=== PATIENT | male | born 1950 | race Caucasian/White ===

== ENCOUNTER → 2016-09-11 | Outpatient (CLI) | payer BC ==
[~2016-09-11] MED LIST: ASPI-535 PO; ATOR20TA17 PO; GLUC1CAP37 PO; MULT1TAB59 PO; OMEG1CAP97 PO; SAW1CAPS3 PO
--- NOTE | 2016-09-16 06:32 | HKNOTE ---
DATE OF SERVICE: 09/12/2016 Patient comes for preoperative evaluation. He is scheduled to have a left total knee replacement on 09/16/2016. He has been cleared for surgery by Dr. Benja Beal. He has read my booklet on knee art hritis and knee replacement surgery. Numerous questions were asked and answered. The patient has p reviously undergone a right knee replacement and is extremely pleased with results of the surgery. There were absolutely no postoperative problems or complications after that surgery. He has not giv en any blood for autotransfusion. He understands the risks associated with using hospital blood. H e is agreeable to using hospital blood, if needed. Dictated By: LV DONOVAN/CHANCE Conf#: [id number] DID#: [id number]
== END | disposition home or self-care (01) ==
LOC: HKI 13:14
DX: Z01.818 Encounter for other preprocedural examination (principal); M17.12 Unilateral primary osteoarthritis, left knee
CPT/HCPCS: G0463

== ENCOUNTER 2016-09-16 05:44 | Inpatient (IN) | payer BC ==
[2016-09-15 11:53] VITALS: BMI 29.6
[~2016-09-16] VITALS: Ht 182.9 cm; Wt 101.9 kg
[2016-09-16] VITALS (9 sets, daily range): BP systolic 95–138; BP diastolic 50–75; PULSE 61–90; RESP 18; Ht 182.9 cm; Wt 101.9 kg
[2016-09-16] MEDS ORDERED: PROPOFOL 20 ML ONE (06:15)
[2016-09-16] MEDS ORDERED: MIDAZOLAM 1 MG/ML 2 ML INJ ONE (06:15)
[2016-09-16] MEDS ORDERED: FENTAnyl 50 MCG/ML VIAL ONE (06:15)
[2016-09-16] MEDS ORDERED: GLYCOPYRROLATE 0.4 MG INJ ONE (06:15)
[2016-09-16] MEDS ORDERED: LIDOCAINE 2% (SDV) 5 ML INJ ONE (06:15)
[2016-09-16] MEDS ORDERED: ROCURONIUM 50 MG INJ ONE (06:15)
[2016-09-16] MEDS ORDERED: DEXAMETHASONE 4 MG/ML 1 ML INJ ONE (06:15)
[2016-09-16] MEDS ORDERED: NEOSTIGMINE 3 MG/3 ML SYRINGE ONE (06:15)
[2016-09-16] MEDS ORDERED: ONDANSETRON 4 MG INJ ONE (06:16)
[2016-09-16] MEDS ORDERED: SUCCINYLCHOLINE CHLORIDE 100 MG/5 ML SYG IV ONE (06:16)
[2016-09-16] MEDS ORDERED: LIDOCAINE 2%/EPI 30 ML INJ ONE (06:20)
[2016-09-16] MEDS ORDERED: hydrALAzine 20 MG INJ IV PRN (06:30)
[2016-09-16] MEDS ORDERED: LANSOPRAZOLE 30 MG CAP PO ONE (06:30)
[2016-09-16] MEDS ORDERED: CELECOXIB 200 MG CAP PO ONE (06:30)
[2016-09-16] MEDS ORDERED: FENTAnyl 50 MCG/ML VIAL IV PRN ×2 (06:30)
[2016-09-16] MEDS ORDERED: VANCOMYCIN 1 GM (PMX) 250 ML IVPB ONE (06:30)
[2016-09-16] MEDS: KNEE PAIN COCKTAIL VANCO INJ SCH ×12 (06:30→08:38)
[2016-09-16] MEDS ORDERED: morphine (1 MG/ML) 10ML SYRINGE IV PRN ×3 (06:30)
[2016-09-16] MEDS ORDERED: ONDANSETRON 4 MG INJ IV ONE (06:30)
[2016-09-16] MEDS ORDERED: LACTATED RINGER'S 1,000 ML IV* SCH (06:30)
[2016-09-16] MEDS ORDERED: DIPHENHYDRAMINE 50 MG INJ IV PRN (06:30)
[2016-09-16] MEDS ORDERED: MEPERIDINE 25 MG INJ IV PRN (06:30)
[2016-09-16] MEDS ORDERED: LABETALOL HCL 20MG INJ IV PRN (06:30)
[2016-09-16] MEDS ORDERED: EPHEDrine SULFATE 50 MG/5 ML SYG IV PRN (06:30)
[2016-09-16] MEDS ORDERED: HYDROmorphONE (0.2 MG/ML) 10ML SYG IV PRN ×3 (06:30)
[2016-09-16] MEDS ORDERED: DEXAMETHASONE 4 MG/ML 1 ML INJ IV ONE (06:30)
[2016-09-16] MEDS ORDERED: TRANEXAMIC ACID 2,000 MG in SOD CHLORIDE 0.9% 100 ML IVPB ONE (06:30)
[2016-09-16] MEDS ORDERED: ACETAMINOPHEN 1000MG/100ML IV 100 ML IVPB ONE (06:30)
[2016-09-16] MEDS ORDERED: OXYCODONE/ACETAMINOPHEN (5/325) TAB PO PRN ×2 (06:30)
[2016-09-16] MEDS ORDERED: oxyCODONE (CR) 10 MG TAB [oxyCONTIN] PO ONE (06:30)
[2016-09-16] MEDS ORDERED: MIDAZOLAM 1 MG/ML 2 ML INJ IV PRN (06:30)
[2016-09-16] MEDS ORDERED: ATROPINE 1 MG/10 ML SYRINGE IV PRN (06:30)
[2016-09-16] MEDS ORDERED: ONDANSETRON 4 MG INJ IV PRN (06:30)
[2016-09-16] MEDS ORDERED: SOD CHLORIDE 0.9% 50 ML, TRANEXAMIC ACID 2,000 MG IRR SCH ×2 (06:30)
--- NOTE | 2016-09-16 07:06 | HPN ---
Date/Time of Note Date/Time of Note DATE: 09/16/16 TIME: 07:05 Interval H&P Admission Note Pt. seen H&P reviewed: No system changes HUMBLE MILNER PA-C Sep 16, 2016 07:06
[2016-09-16] MEDS ORDERED: POLYMYXIN B 500000 UNIT INJ ONE (07:53)
[2016-09-16] MEDS ORDERED: ROPIVACAINE 0.2% 100 ML ONE (07:53)
[2016-09-16] MEDS ORDERED: METHYLENE BLUE 1% 10 ML INJ ONE (07:53)
[2016-09-16] MEDS ORDERED: TOBRAMYCIN 1.2 GM POWDER ONE ×2 (07:54→10:10)
[2016-09-16] MEDS ORDERED: VANCOMYCIN 1 GM INJ ONE (07:54)
[2016-09-16] MEDS ORDERED: BUPIVACAINE 0.25%/EPI (SDV) 30 ML INJ ONE (07:54)
[2016-09-16] MEDS ORDERED: LIDOCAINE 4% CR ONE (07:58)
[2016-09-16] MEDS ORDERED: BACITRACIN 50000 UNITS INJ IRR ONE (08:36)
[2016-09-16] MEDS ORDERED: ROPIVACAINE 0.2% 100ML BAG INJ ONE (08:38)
--- NOTE | 2016-09-16 10:44 | RADRPT ---
PROCEDURE: Intraoperative imaging of the left knee with fluoroscopy. CLINICAL INDICATION: Left knee pain. Intraoperative. TECHNIQUE: 3 images of the left knee were obtained in the operating room with an image intensifier . No radiologist was in attendance. 6.8 seconds of fluoroscopy time was used. COMPARISON: 05/13/2016. FINDINGS: Images demonstrate components of the left knee arthroplasty. IMPRESSION: 1. Intraoperative imaging of the left knee. RPTAT: QQ .Raphael Ariza MD, MD Date Time Electronically viewed and signed by .Raphael Ariza MD, MD on 09/16/2016 10:44 .R/
--- NOTE | 2016-09-16 11:49 | RADRPT ---
PROCEDURE: Left knee radiograph. CLINICAL INDICATION: Left knee pain. Intraoperative. TECHNIQUE: Single lateral intraoperative image. COMPARISON: Prior study done earlier the same day. FINDINGS: There are components of a total left knee arthroplasty. Alignment was determined in the operating r oom by the surgeon. IMPRESSION: 1. Satisfactory intraoperative imaging of the left knee. RPTAT: QQ .Raphael Ariza MD, MD Date Time Electronically viewed and signed by .Raphael Ariza MD, on 09/16/2016 11:49 .R/
[2016-09-16] MEDS ORDERED: SENNA/DOCUSATE NA (8.6MG/50MG) TAB PO PRN (12:00)
[2016-09-16] MEDS ORDERED: DOCUSATE SODIUM 100 MG CAP PO ONE (12:00)
[2016-09-16] MEDS ORDERED: COUMADIN NOTE XX SCH (12:00)
[2016-09-16] MEDS ORDERED: MEPERIDINE 10 MG/ML 30 ML PCA IV PRN (12:00)
[2016-09-16] MEDS ORDERED: ZOLPIDEM 5 MG TAB PO PRN (12:00)
[2016-09-16] MEDS ORDERED: TRANEXAMIC ACID 1,020 MG in SOD CHLORIDE 0.9% 100 ML IVPB ONE ×4 (12:00)
[2016-09-16] MEDS ORDERED: MAGNESIUM HYDROXIDE 30ML CUP PO PRN (12:00)
[2016-09-16] MEDS ORDERED: HYDROmorphONE 0.2 MG/ML PCA IV PRN (12:00)
[2016-09-16] MEDS ORDERED: NALOXONE (0.4 MG/ML) INJ IV PRN (12:00)
[2016-09-16] MEDS: ONDANSETRON 4 MG INJ IV SCH ×2 (12:00→16:52)
[2016-09-16] MEDS ORDERED: DIPHENHYDRAMINE 50 MG INJ IM PRN (12:00)
[2016-09-16] MEDS ORDERED: NA PHOSPHATE/BIPHOS 133 ML ENEMA PR PRN (12:00)
[2016-09-16] MEDS ORDERED: BISACODYL 10 MG SUPP PR PRN (12:00)
[2016-09-16] MEDS: ACETAMINOPHEN 1000MG/100ML IV 100 ML IVPB SCH ×2 (12:00→21:30)
[2016-09-16] MEDS: CEFAZOLIN 1 GM/50 ML (PMX) 50 ML IVPB SCH ×2 (12:00→20:25)
[2016-09-16] MEDS ORDERED: oxyCODONE 5 MG TAB PO PRN (12:00)
[2016-09-16] MEDS ORDERED: ASPIRIN (EC) 325 MG TAB PO ONE (12:00)
[2016-09-16] MEDS ORDERED: BETHANECHOL 25 MG TAB PO PRN (12:00)
--- NOTE | 2016-09-16 13:01 | OPR ---
DATE OF OPERATION: 09/16/2016 TOTAL KNEE REPLACEMENT TEMPLATE #1 SURGEON: Leoncio Evans MD PIPE STRAIGHTENER: LLOYD Canales ANESTHESIOLOGIST: Sj Jackson MD PREOPERATIVE DIAGNOSIS: Exceedingly severe degenerative osteoarthritis of the left knee. POSTOPERATIVE DIAGNOSIS: Exceedingly severe degenerative osteoarthritis of the left knee. OPERATION PERFORMED: Total knee replacement (arthroplasty of the knee, condylar plateau medial and lateral compartments with patella resurfacing, CPT 41084). FINDINGS AT SURGERY: The patient was found to have exceedingly severe degenerative osteoarthritis a ffecting all 3 compartments of the knee. The arthritis was much more severe than it appeared to be on x-ray. His bone quality was amazingly good. JUSTIFICATION FOR SURGERY: The knee was found to have end-stage osteoarthritis. The patient is a v volodymyr active 66-year-old whose lifestyle is markedly affected by the arthritic knee. The patient prev iously underwent a right total knee replacement with which he is very pleased. An extensive course of conservative care has been tried prior to embarking on the knee replacement operation. There can be no reasonable expectation that any further conservative treatment will make any improvement to t his patient's pain level and lifestyle. The risks and complications of the surgery were discussed w ith the patient at the preoperative visit as well as the risks and possible complications of blood t ransfusion using hospital blood. The patient is agreeable to using hospital blood if needed. DESCRIPTION OF PROCEDURE: The patient was given intravenous antibiotics 1 hour prior to surgery. A n epidural anesthetic was initiated in the ICU holding area. The patient was taken to the operating room and given a light general anesthetic. The leg, foot, and ankle were prepared and draped in th e usual sterile fashion. The center of the ankle was marked at the midpoint between the 2 malleoli with a sterile marking pen. A tourniquet around the thigh was inflated to 250 mmHg after the leg samuel d been exsanguinated using an Esmarch bandage. The tourniquet was inflated at the initiation of pro cedure for a short period and was then again reinflated at the time of cementing the components part s. The total tourniquet time was 54 minutes. A longitudinal incision was made over the anterior aspect of the knee. The incision extended from t he tibial tubercle to a point just above the patella. The medial capsule was exposed by sharp and b maddie dissection, and was incised 1/4 inch medial to the patella. A marking stitch was set on each s sergio of the incision at the midpoint of the capsule so as to enable accurate reapproximation at the e nd of the operation. A vastus split was made in the vastus medialis extending from the superior gillian e of the patella for approximately 5 cm between the line with the muscle fibers. The ends of the mu scle split at the patella were marked with a marking stitch on each side for later accurate reapprox imation. The patella was reflected laterally and osteophytes around the rim of the patella were rem jessee. Osteophytes along the lateral femoral condyle were removed so as to facilitate lateral reflec tion of the patella. Posteromedial osteophytes were removed on the lateral side as well, so as to f ree up the lateral collateral ligament. Medial femoral osteophytes and posteromedial femoral osteop hytes were also removed at this time. This allowed for the knee to be brought into a more normal al ignment. A segment of bone was cut from the articular surface of the patella using a caliper to det ermine the exact thickness to be removed. The remaining thickness of the patella was 18 mm. The kn ee was flexed, and the patella was displaced laterally without eversion. Osteophytes in the femoral notch were removed. The remnants of the medial and lateral menisci were excised and the cruciate l igaments were excised. The medial collateral ligament was elevated as an osteo-periosteal flap from the proximal tibia. The distal end of the medial collateral ligament remained attached to the tibi a throughout the operation. The tibia was retracted forward with Hohmann retractor, inserted lean six sigma black belt ior to the midpoint of the proximal tibia. The tibial jig was set in place in such a way as to alig n longitudinally with the anterior tibial spine, with the junction of the middle and medial 2/3 of t he patella tendon, and with the posterior intercondylar eminence of the tibia. An AP and lateral x- ray was obtained with the alignment jig in place. This showed that the alignment was satisfactory a fter some slight adjustments were made. The posterior slope of the tibia was set at 6 degrees. The tibial cutting block was attached to the proximal tibia with 2 Steinmann pins. An external alignme nt antony was placed on the cutting block to confirm the alignment of the cutting block. An Sha Wing feeler gauge was now placed on the superior aspect of the cutting block to further confirm the post erior slope of the tibia and the depth of the cut to be made. An oscillating saw was used to remove an appropriate amount of bone from the proximal tibia with the healthy side being used to measure t he cutting depth. The lateral femoral condyle of the distal femur was measured to determine the april ropriate size for the femoral component. The anterior condyle of the femur was partially removed wi th a rongeur. A medium-sized cutting block was attached to the distal femur with 2 Steinmann pins t hrough the pin holes in the block. The external alignment jig of this cutting block was lined up wi th the anterior surface of the femur and a central intercondylar hole for the intramedullary antony was drilled through the hole in the alignment block. The block was removed. A long [place] nozzle wa s used to flush fat from the intramedullary canal. The appropriately sized cutting block was now at tached to the femur by means of an intramedullary antony. The linking guide was inserted into the slot in the base of the femoral cutting block with the knee set at 90 degrees of flexion and with the li nking guide set flush with the proximal tibial cut in order to set the appropriate rotational alignm ent on the femoral cutting block. Ligament balance was checked at this point and was found to be ve ry satisfactory. Once the rotational alignment had been determined, and the ligaments found to be b alanced, the femoral cutting block was secured to the distal femur with 2 Steinmann pins. The anter ior and posterior cuts of the distal femur were made off the femoral cutting block. The cutting blo ck was removed and a spacer block was used to measure the flexion gap which was found to be 12.5 mm. The same spacer block size without the femoral element was used with the leg in extension to determi ne the amount of distal femur to be removed in the transverse plane. A 4-degree distal cutting bloc k was now set on the femoral intramedullary antony, and the antony was inserted into the intramedullary ca nal. The appropriate amount of bone to be removed was determined. The femoral cutting block was pi nned to the anterior surface of the femur with 2 Steinmann pins. The appropriate amount of bone was resected off the distal femur to give an extension gap equal to the thickness of the flexion gap. The cut needed to be repeated after initial cut in order to produce an extension gap the same size a s the flexion gap. By using the appropriate cutting blocks, the rest of the femoral cuts were made. The femoral trial component was installed and was found to fit perfectly. The femoral trial component was removed. T he proximal tibia was sized, and the appropriate tibial tray selected. The central fixation hole in the tibia was made using the tibial tray template and the appropriate instruments. The femoral and tibial trials and the trial tibial insert were installed, and the patella was prepared to accept th e 38 mm sized dome component. The trial components were all removed. The tourniquet was inflated. Soft tissues around the knee, especially the posterior capsule, were injected with a mixture of Karan opin, Toradol, morphine, and clonidine. The cut surfaces of the bones were cleaned with pulsatile W ater Jet lavage and thoroughly dried. Sclerotic bone surfaces were drilled with a 1/8-inch drill. The tibial trial component was installed with methyl methacrylate cement followed by the femoral com ponent and finally the patellar component. Cement was used on all 3 components. The cement was fin rito packed into the cut surfaces of the bone and pressurized with a rubber dam in order to get good interdigitation of the cement into the bone. A lateral x-ray of the knee was obtained while the christopher ent was hardening with the 12.[address] Once the cement was hard, all extraneous cement was removed. The cut edges of the medial capsule were held together at the midpoint with a towel c lip, and the knee was put through a full range of motion. The patella was found to track satisfacto rily. A lateral release was ____. At this point, the patella was found to track very well in the p atellar groove of the femoral component. The knee was frequently irrigated with normal saline containing antibiotics with pulsatile lavage th roughout the entire operation as a prophylactic measure against infection. Once the cement was hard , the tourniquet was released. Bleeding points were cauterized. The total tourniquet time was 54. The patient's vital signs remained stable throughout the operation. The permanent rotating bearing was installed. Superficial and deep Hemovac drains were set in place . The wound was closed using interrupted Vicryl on the capsule with FiberWire used at strategic poi nts such as the attachment of the distal ends of the vastus medialis at the split, and the tibial te ndon was also attached to the osteo-periosteal flap with FiberWire. The rest of the medial capsule was closed with interrupted Vicryl. A subcuticular stitch was inserted and caroline were used on the skin. The usual sterile dressings were applied. A Andrez-Gomez compression dressing was applied a fter a sterile cooling pad had been set in place against the deep tissues by sterile cast padding. The patient's condition at the end of the procedure was satisfactory. Vital signs remained stable t hroughout the operation. The patient returned to the recovery room in stable condition. X-rays wer e obtained in the recovery room. Calf pumps were applied to both legs in the operating room. There were no problems or complications as far as we know. The sponge and instrument counts were correct . COMPONENT INFORMATION: KNEE IMPLANT TYPE: LCS. FEMORAL COMPONENT SIZE: Large plus. TIBIAL COMPONENT SIZE: #5. PATELLAR COMPONENT SIZE: 38 mm patellar dome. TIBIAL INSERT: 12.5 mm large plus mobile bearing deep dish. 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 TOTAL TOURNIQUET TIME: 54 minutes. TOTAL BLOOD LOSS: Less than 150 mL. Dictated By: LEONCIO DONOVAN/CHANCE Conf#: [id number] DID#: [id number]
[2016-09-16] MEDS ORDERED: BACITRACIN 50000 UNITS INJ ONE (13:21)
[2016-09-16] MEDS: DEXTROSE 5%-LR 1,000 ML IV SCH ×2 (14:24→21:30)
--- NOTE | 2016-09-16 14:27 | RADRPT ---
PROCEDURE: XR Left Knee. CLINICAL INDICATION: Left knee pain. Postop. TECHNIQUE: Two views. Frontal and lateral. COMPARISON: 09/16/2016. 1033 hours. FINDINGS: There is no fracture or dislocation. Gas is present in the soft tissues from the recent surgery. Anterior skin caroline and surgical drai ns are noted. There is a total left knee arthroplasty which appears satisfactory. There is no lytic or blastic lesion. There is no joint effusion. IMPRESSION: 1. Satisfactory postoperative appearance of the left knee. RPTAT: QQ .Raphael Ariza MD, MD Date Time Electronically viewed and signed by .Raphael Ariza MD, MD on 09/16/2016 14:26 .R/
--- NOTE | 2016-09-16 21:06 | CONS ---
DATE OF ADMISSION: 09/16/2016 DATE OF CONSULTATION: TYPE OF CONSULTATION: Medical. Thank you, Dr. Evans, for asking me to participate in medical management of this patient. REASON FOR CONSULTATION: To manage this patient's hyperlipidemia. HISTORY OF PRESENT ILLNESS: This 66-year-old man is now postop a left total knee replacement by Dr. Evans. The patient is awake and alert. The patient was having increasing pain in his left kn ee. He has a history of osteoarthritis and decided to undergo a left total knee replacement. The p kayley has a history of osteoarthritis of the right knee and underwent surgery 07/02/2012 to have th e right knee replaced. He is feeling well at this time. He denies any chest pain or shortness of b reath. PAST MEDICAL HISTORY: Remarkable for hyperlipidemia. He was overweight but did lose 32 pounds befo re this surgery. PAST SURGICAL HISTORY: Remarkable for right total knee replacement in 2012, tonsillectomy, appendec billy, right foot surgery, bilateral shoulder surgery, bilateral knee arthroscopic surgery, left foot bunionectomy as well as right foot bunionectomy, left rotator cuff repair. FAMILY HISTORY: Positive for diabetes mellitus, prostate cancer and congestive heart failure and ce rebrovascular disease. SOCIAL HISTORY: The patient does not drink alcohol. He does not smoke. 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 MEDICATIONS: 1. Lipitor 20 mg a day. 2. Saw palmetto. 3. Multivitamins. 4. Glucosamine/chondroitin sulfate. PHYSICAL EXAMINATION: GENERAL: At this time reveals a well-developed man. No apparent distress. VITAL SIGNS: Temperature 97.9, respirations 18, blood pressure 134/70, O2 saturation 99% on room ai r. HEAD: Normocephalic. EYES: Extraocular muscles intact. NOSE AND MOUTH: Normal. NECK: Supple. No neck vein distention. LUNGS: Clear to auscultation. HEART: Regular rhythm. No murmurs, gallops or rubs. ABDOMEN: Soft, nontender. EXTREMITIES: No peripheral edema. IMPRESSION: This patient is doing well postoperatively. He is able to flex his left knee. He has been up walking with Physical Therapy. I will manage the patient's hyperlipidemia. PLAN: 1. Resume some routine medications. 2. Check labs in the morning. 3. Postop total knee replacement protocol. 4. I will follow the patient along with you medically. Dictated By: TESSIE ROCA MD, ND/CHANCE Conf#: [id number] DID#: [id number]
[2016-09-17 00:35] VITALS: BP 110/57; PULSE 68; RESP 18
[2016-09-17] MEDS: ACETAMINOPHEN 1000MG/100ML IV 100 ML IVPB SCH ×3 (03:49→20:00)
[2016-09-17] MEDS: CEFAZOLIN 1 GM/50 ML (PMX) 50 ML IVPB SCH (04:43)
[2016-09-17 05:11] LABS: ADD SCAN DIFF NO
[2016-09-17 05:27] LABS: BASOPHILS % 0.1 % (0.0-2.0); EOSINOPHILS % 0.1 % (0.0-7.0); HEMATOCRIT 35.6 % (42.0-52.0); HEMOGLOBIN 12.3 g/dl (14.0-18.0); LYMPHOCYTES # 1.2 10^3/ul (0.8-2.9); LYMPHOCYTES % 10.7 % (15.0-51.0); MEAN CORPUSCULAR HGB CONC 34.6 g/dl (32.0-37.0); MEAN CORPUSCULAR VOLUME 92.7 fl (82.0-101.0); MEAN PLATELET VOLUME 10.6 fl (7.4-10.4); MONOCYTE # 0.9 10^3/ul (0.3-0.9); MONOCYTES % 8.5 % (0.0-11.0); NEUTROPHIL # 8.6 10^3/ul (1.6-7.5); NEUTROPHILS % 80.2 % (39.0-77.0); PLATELET COUNT 153 10^3/UL (140-415); RED BLOOD COUNT 3.84 10^6/ul (4.70-6.10); RED CELL DISTRIBUTION WIDTH 12.3 % (11.5-14.5); WHITE BLOOD COUNT 10.8 10^3/ul (4.8-10.8)
[2016-09-17] MEDS: ONDANSETRON 4 MG INJ IV SCH ×2 (06:00)
[2016-09-17] MEDS ORDERED: KETOROLAC 15 MG INJ INJ PRN (06:00)
[2016-09-17] MEDS ORDERED: BUPIVACAINE 0.25%/EPI (SDV) 30 ML INJ INJ PRN (06:00)
[2016-09-17 06:03] LABS: ALBUMIN 3.3 g/dl (3.3-4.9)
[2016-09-17 06:04] LABS: POTASSIUM 3.9 mmol/L (3.5-5.1)
[2016-09-17 06:06] LABS: ALBUMIN/GLOBULIN RATIO 1.43; BILIRUBIN,INDIRECT 0.4 mg/dl (0-1.1); BILIRUBIN,TOTAL 0.4 mg/dl (0.2-1.3); CALCIUM 8.3 mg/dl (8.4-10.2); CREATININE 0.74 mg/dl (0.61-1.24); TOTAL PROTEIN 5.6 g/dl (6.1-8.1)
[2016-09-17] MEDS: DEXAMETHASONE 4 MG/ML 1 ML INJ IV SCH (06:09)
--- NOTE | 2016-09-17 07:26 | PN ---
Date/Time of Note Date/Time of Note DATE: 09/17/16 TIME: 07:24 Assessment/Plan VTE Prophylaxis VTE Prophylaxis Intervention: ambulation, anti-embolic stocking, SCD's, other ( Aspirin 325 mg twice daily.) Lines/Catheters IV Catheter Type (from Nrsg): Peripheral IV Assessment/Plan Assessment/Plan -Hemovac Removed Today. 160 cc output. -Pain Cocktail Given -Pain Meds as needed -Dress change performed today -OOB with PT -ASA/SCDs for DVT Prophylaxis -Continue monitoring with Internal Medicine -Patient Stable. Possible DC home tomorrow. Subjective 24 Hr Interval Summary 66-year-old male postop day 1 status post left total knee arthroplasty. Denies any pain complaints. Patient was up and out of bed with physical therapy yesterday. States that he is able to walk down the [place]. Patient doing well in regards to pain status post left knee surgery. Denies any chest pain/ tightness, shortness of breath, calf pain. Constitutional: no complaints Pain Control: well controlled Exam/Review of Systems Vital Signs Vitals Vital Signs Date Time Temp Pulse Resp B/P Pulse Ox O2 Delivery O2 Flow Rate FiO2 09/17/16 00:35 98.0 68 18 110/57 97 Room Air Intake and Output 09/16/16 09/16/16 09/17/16 15:00 23:00 07:00 Intake Total 2120 ml 700 ml 2300 ml Output Total 100 ml 800 ml 1880 ml Balance 2020 ml -100 ml 420 ml Exam Free Text/Dictation -Hemovac: Intact. 160 cc output -Pain Cocktail Drains: Intact -Incision: Clean, Dry and Intact without any redness or drainage -5/5 Tibialis Anterior, EHL Gastrocnemius/Soleus and Peroneals -About 5 lag from full extension. Patient is able to actively flex up to 120. -Normal Sensation -Palpable DP/PT, Capillary Refill <2 secs -No Distal Edema -Negative Rochelle Sign/No calf pain -Toes Freely Movable Constitutional: alert, oriented, well developed Results Result Diagram: 09/17/16 0418 09/17/16 0415 HUMBLE MILNER PA-C Sep 17, 2016 07:26
[2016-09-17 08:16] VITALS: BP 129/63; RESP 18
--- NOTE | 2016-09-17 08:33 | CONS ---
Date/Time of Note Date/Time of Note DATE: 09/17/16 TIME: 08:30 Assessment/Plan Assessment/Plan Chief Complaint/Hosp Course #1 he is one day postop left total knee replacement. #2 he feels well. #3 continue current medication and physical therapy regimen as tolerated. Problems: Consultation Date/Type/Reason Admit Date/Time Sep 16, 2016 at 05:44 Initial Consult Date 24 HR Interval Summary Free Text/Dictation He is one day postop a left total knee replacement. He feels well. Constitutional: improved, no complaints Exam/Review of Systems Vital Signs Vitals Vital Signs Date Time Temp Pulse Resp B/P Pulse Ox O2 Delivery O2 Flow Rate FiO2 09/17/16 08:16 98.2 66 18 129/63 95 09/17/16 00:35 Room Air Intake and Output 09/16/16 09/16/16 09/17/16 15:00 23:00 07:00 Intake Total 2120 ml 700 ml 2300 ml Output Total 100 ml 800 ml 1880 ml Balance 2020 ml -100 ml 420 ml Exam Constitutional: alert, oriented, well developed Respiratory: clear to auscultation, normal air movement Cardiovascular: regular rate and rhythm Gastrointestinal: soft Musculoskeletal: nl extremities to inspection Results Result Diagram: 09/17/16 0418 09/17/16 0415 Results 24 hrs Laboratory Tests Test 09/17/16 04:15 09/17/16 04:18 Sodium Level 140 Potassium Level 3.9 Chloride Level 107 Carbon Dioxide Level 26 Anion Gap 11 Blood Urea Nitrogen 17 Creatinine 0.74 Glucose Level 116 Calcium Level 8.3 L Total Bilirubin 0.4 Direct Bilirubin 0.00 Indirect Bilirubin 0.4 Aspartate Amino Transf (AST/SGOT) 32 Alanine Aminotransferase (ALT/SGPT) 35 Alkaline Phosphatase 79 Total Protein 5.6 L Albumin 3.3 Globulin 2.30 Albumin/Globulin Ratio 1.43 White Blood Count 10.8 Red Blood Count 3.84 L Hemoglobin 12.3 L Hematocrit 35.6 L Mean Corpuscular Volume 92.7 Mean Corpuscular Hemoglobin 32.0 Mean Corpuscular Hemoglobin Concent 34.6 Red Cell Distribution Width 12.3 Platelet Count 153 Mean Platelet Volume 10.6 H Neutrophils % 80.2 H Lymphocytes % 10.7 L Monocytes % 8.5 Eosinophils % 0.1 Basophils % 0.1 Nucleated Red Blood Cells % 0.0 Neutrophils # 8.6 H Lymphocytes # 1.2 Monocytes # 0.9 Eosinophils # 0.0 Basophils # 0.0 Nucleated Red Blood Cells # 0.0 Medications Medications Current Medications Sodium Chloride 50 ml/Tranexamic Acid 2000 mg INTRA-OP IRR ; Start 09/16/16 at 06:30 Dextrose/Lactated Ringer's (D5-Lr) 1,000 ml @ 80 mls/hr [id number] IV Last administered on 09/16/16 21:30; Admin Dose 80 MLS/HR; Start 09/16/16 at 11:31 Hydromorphone HCl (Dilaudid CROCHET BEADER) Q4PCA PRN IV SEVERE PAIN 8-10; Start 09/16/16 at 12:00; Stop 09/17/16 at 11:59 Meperidine HCl (Demerol CROCHET BEADER) Q4PCA PRN IV SEVERE PAIN 8-10; Start 09/16/16 at 12:00; Stop 09/17/16 at 11:59 Oxycodone HCl (Roxicodone) 20 mg Q3H PRN PO PAIN LEVEL 8-10; Start 09/16/16 at 12:00 Oxycodone HCl (Roxicodone) 10 mg Q3H PRN PO PAIN LEVEL 4-7; Start 09/16/16 at 12 :00 Oxycodone HCl 5 mg 5 mg Q3H PRN PO PAIN LEVEL 1-3; Start 09/16/16 at 12:00 Acetaminophen (Ofirmev 1000mg/ 100ml Iv) 100 ml @ 400 mls/hr Q8H IVPB Last administered on 09/17/16 03:49; Admin Dose 400 MLS/HR; Start 09/16/16 at 12:00; Stop 09/18/16 at 04:14 Zolpidem Tartrate (Ambien) 5 mg HS PRN PO INSOMNIA; Start 09/16/16 at 12:00 Miscellaneous Information (Note) NOTE XX ; Start 09/16/16 at 12:00 Aspirin (Ecotrin) 325 mg BID PO ; Start 09/17/16 at 09:00 Celecoxib (Celebrex) 200 mg BID PO ; Start 09/17/16 at 09:00 Dexamethasone (Decadron) 4 mg DAILY@07 IV Last administered on 09/17/16 06:09; Admin Dose 4 MG; Start 09/17/16 at 07:00; Stop 09/20/16 at 06:59 Pantoprazole (Protonix Tab) 40 mg DAILY@06 PO ; Start 09/18/16 at 06:00 Docusate Sodium/ Ferrous Fumarate (Linsey-Sequels) 1 tab BID PO ; Start 09/17/16 at 09:00 Docusate Sodium (Colace) 200 mg BID PO ; Start 09/17/16 at 09:00; Stop 09/20/16 at 08:59 Simethicone (Mylicon) 80 mg TID PRN PO DISTENSION/GAS/BLOATING; Start 09/16/16 at 12:00 Senna/Docusate Sodium (Senokot-S) 2 tab BID PRN PO CONSTIPATION; Start 09/16/16 at 12:00 Magnesium Hydroxide (Milk Of Mag) 30 ml HS PRN PO CONSTIPATION; Start 09/16/16 at 12:00 Bisacodyl (Dulcolax Supp) 10 mg DAILY PRN [place] CONSTIPATION; Start 09/16/16 at 12: 00 Sodium Biphosphate/ Sodium Phosphate (Fleet Enema) 133 ml DAILY PRN [place] CONSTIPATION; Start 09/16/16 at 12:00 Diphenhydramine HCl (Benadryl) 25 mg Q4H PRN IM ITCHING OR RASH; Start 09/16/16 at 12:00 Ketorolac Tromethamine (Toradol) 15 mg DAILY@06 PRN INJ ADMINSTER BY SURGEON ONLY; Start 09/17/16 at 06:00; Stop 09/21/16 at 05:59 Bupivacaine HCl/ Epinephrine Bitart (Marcaine 0.25%/ Epi (Sdv) 30 ml) 20 ml DAILY@06 PRN INJ ADMINSTER BY SURGEON ONLY; Start 09/17/16 at 06:00; Stop at 05:59 Naloxone HCl (Narcan) 0.2 mg Q2M PRN IV DECREASED REPIRATORY RATE; Start at 12:00 Atorvastatin Calcium (Lipitor) 20 mg DAILY PO ; Start 09/17/16 at 09:00 Multivitamins Therapeutic (Theragran) 1 tab DAILY PO ; Start 09/17/16 at 09:00 TESSIE ROCA MD Sep 17, 2016 08:33
[2016-09-17] MEDS: DOCUSATE SODIUM 100 MG CAP PO SCH ×2 (08:49→20:48)
[2016-09-17] MEDS: CELECOXIB 200 MG CAP PO SCH ×2 (08:49→20:49)
[2016-09-17] MEDS: FERROUS FUMARATE (SR) TAB PO SCH ×2 (08:50→20:48)
[2016-09-17] MEDS: ASPIRIN (EC) 325 MG TAB PO SCH ×2 (08:50→20:49)
[2016-09-17] MEDS: MULTIVITAMINS THERAPEUTIC TAB PO SCH (08:50)
[2016-09-17] MEDS: oxyCODONE 5 MG TAB PO PRN ×4 (08:50→20:50)
[2016-09-17] MEDS ORDERED: ATORVASTATIN 20 MG TAB PO SCH ×2 (09:00→21:00)
[2016-09-17] MEDS: DEXTROSE 5%-LR 1,000 ML IV SCH (12:31)
[2016-09-17 20:09] VITALS: BP 126/64; RESP 20
[2016-09-18] MEDS: DEXTROSE 5%-LR 1,000 ML IV SCH (01:01)
[2016-09-18] MEDS: ACETAMINOPHEN 1000MG/100ML IV 100 ML IVPB SCH (04:00)
[2016-09-18 04:57] LABS: ADD SCAN DIFF NO
[2016-09-18 05:32] LABS: BASOPHILS % 0.2 % (0.0-2.0); EOSINOPHILS # 0.2 10^3/ul (0.0-0.5); EOSINOPHILS % 2.4 % (0.0-7.0); HEMATOCRIT 36.9 % (42.0-52.0); LYMPHOCYTES # 1.4 10^3/ul (0.8-2.9); LYMPHOCYTES % 16.2 % (15.0-51.0); MEAN CORPUSCULAR HEMOGLOBIN 31.3 pg (29.0-33.0); MEAN CORPUSCULAR HGB CONC 32.5 g/dl (32.0-37.0); MEAN CORPUSCULAR VOLUME 96.1 fl (82.0-101.0); MEAN PLATELET VOLUME 10.8 fl (7.4-10.4); MONOCYTE # 0.8 10^3/ul (0.3-0.9); MONOCYTES % 8.8 % (0.0-11.0); NEUTROPHIL # 6.3 10^3/ul (1.6-7.5); NEUTROPHILS % 72.1 % (39.0-77.0); PLATELET COUNT 135 10^3/UL (140-415); RED BLOOD COUNT 3.84 10^6/ul (4.70-6.10); RED CELL DISTRIBUTION WIDTH 12.7 % (11.5-14.5); WHITE BLOOD COUNT 8.8 10^3/ul (4.8-10.8)
[2016-09-18] MEDS ORDERED: PANTOPRAZOLE (EC) 40 MG TAB PO SCH (06:00)
[2016-09-18] MEDS: DEXAMETHASONE 4 MG/ML 1 ML INJ IV SCH (06:08)
[2016-09-18] MEDS: oxyCODONE 5 MG TAB PO PRN ×2 (06:09→10:37)
--- NOTE | 2016-09-18 07:45 | PN ---
Date/Time of Note Date/Time of Note DATE: 09/18/16 TIME: 07:43 Assessment/Plan VTE Prophylaxis VTE Prophylaxis Intervention: ambulation, anti-embolic stocking, SCD's, other ( Aspirin 325 mg twice daily) Lines/Catheters IV Catheter Type (from Nrsg): Saline Lock Assessment/Plan Assessment/Plan -Pain Cocktail Given. Pain cocktail catheters removed. Dermabond applied over catheter site. -Pain Meds as needed -Dress change performed today -ASA for DVT Prophylaxis x 6 weeks outpatient discussed. -Continue monitoring as outpatient on discharge -Follow-up at scheduled postop outpatient appointment or sooner if there is any issue. -Tegaderm dressings given with specific instructions to use as outpatient to keep wound dry until caroline are moved around 10 days. -Patient Stable -Discharge to Home with home health Subjective 24 Hr Interval Summary 66-year-old male postop day 2 status post left total knee arthroplasty. Denies any pain complaints. Patient is up and out of bed and walking throughout the hallways without any difficulty. Patient is very pleased status post surgery and denies any symptoms such as chest pain/tightness, shortness of breath or calf pain. Patient would like to go home today. Constitutional: no complaints Pain Control: well controlled Exam/Review of Systems Vital Signs Vitals Vital Signs Date Time Temp Pulse Resp B/P Pulse Ox O2 Delivery O2 Flow Rate FiO2 09/17/16 20:09 98.1 66 20 126/64 98 09/17/16 00:35 Room Air Intake and Output 09/17/16 09/17/16 09/18/16 15:00 23:00 07:00 Intake Total 560 ml 900 ml 200 ml Output Total 600 ml 600 ml Balance 560 ml 300 ml -400 ml Exam Free Text/Dictation -Hemovac: Removed -Pain Cocktail Drains: Intact -Incision: Clean, Dry and Intact without any redness or drainage -5/5 Tibialis Anterior, EHL Gastrocnemius/Soleus and Peroneals -5 lag from full extension. Patient able to actively flex up to 110 today. -Normal Sensation -Palpable DP/PT, Capillary Refill <2 secs -No Distal Edema -Negative Rochelle Sign/No calf pain -Toes Freely Movable Constitutional: alert, oriented, well developed Results Result Diagram: 09/18/16 0425 09/17/16 0415 HUMBLE MILNER PA-C Sep 18, 2016 07:45
--- NOTE | 2016-09-18 07:47 | PDOCDIS ---
Discharge Instructions DIAGNOSIS Discharge Diagnosis: Status post left total knee arthroplasty CONDITION Patient Condition: Stable HOME CARE INSTRUCTIONS: Diet Instructions: Regular ACTIVITY: Activity Restrictions: Slowly Increase Activity Rest between Activity Avoid heavy lifting No Sexual Activity Do not Drive Do not operate Machinery Avoid Heavy Housework Keep Limb Elevated Weight Bearing (As tolerated. May use front wheeled walker for assisted ambulation. May gradually transition to independent walking once patient is comfortable.) Bathing Restrictions: Shower (With Tegaderm dressing with pad. Detailed instructions regarding Tegaderm application prior to showering and removing after shower had with patient. May discontinue after caroline have been removed around 10 days.) FOLLOW UP/APPOINTMENTS Appointments . HUMBLE MILNER PA-C Sep 18, 2016 07:47
--- NOTE | 2016-09-18 07:51 | DS ---
Date/Time of Note Date/Time of Note DATE: 09/18/16 TIME: 07:48 Discharge Summary Admission/Discharge Info Admit Date/Time Sep 16, 2016 at 05:44 Discharge Date/Time 09/18/16 Final Diagnosis Status post left knee total arthroplasty Patient Condition: Stable Hospital Course On the day of admission, the patient underwent total left knee arthroplasty Intraoperative complications: None Postoperative complications: None The patient was given prophylactic antibiotics and anticoagulants. On the day of surgery and first postoperative day patient was started on gait training and was taught usual restrictions following knee replacement Suction drain removed on the first postoperative day and the dressings were changed. The wound was found to be clean and healing well. There was no sign of infection. Pain cocktail given. On the second postoperative day, patient continued with inpatient PT. Dressings were changed. Wound was found to be clean and healing well. No signs of infection. Pain cocktail given. On the day of discharge, the wound was clean and healing well; there was no sign of infection. The dressings were changed. Discharge Temperature: 97.8 Discharge White Blood Cell Count: 8.8 Discharge Hemoglobin: 12 The patient was discharged home with home health. Arrangements were made for visiting nurses and home health/physical therapy. Tegaderm with pad also provided for patient. Instructions given on how to use to keep wound dry while showering. Patient may discontinue use of Tegaderm with pad after caroline have been removed around 10 days postoperatively. The patient will be seen in office at scheduled postoperative evaluation date given on their preoperative exam. Appointment on 10/07/16 at 2:15 should patient complain of any problems prior to scheduled postoperative evaluation date, they may call into outpatient clinic to determine if they need to be scheduled at sooner appointment to be seen immediately if needed. Discharge medications: As per medication reconciliation form Diet: Same as preadmission diet. This is Humble Marrero PA-C dictating discharge summary for Dr. Leoncio Evans. Home Meds Reported Medications Fish Oil/[place]-3 Fatty Acids (Fish Oil 1,000 Mg Capsule) 1 Cap Capsule, 1 CAP PO DAILY 07/02/12 Multivitamins* (Multivitamins*) 1 Tab Tablet, 1 TAB PO DAILY 07/02/12 Sawpalmtofrtxt-Zinc Picolinate (Saw [place] Capsule) 1 Cap Capsule, 1 CAP PO DAILY 07/02/12 Gluc Wiseman/Chondroitin Sulfate A (Glucosamine Chondroitin Cap) 1 Cap Capsule, 1 CAP PO DAILY 07/02/12 Atorvastatin (Lipitor) 20 Mg Tablet, 20 MG PO PM 07/02/12 Discontinued Reported Medications Aspirin Ec (Aspir 81) 81 Mg Tablet.dr, 81 MG PO DAILY 07/02/12 Follow-up Plan 10/07/16 at 2:15PM Pending Labs Laboratory Tests Test 09/18/16 04:25 White Blood Count 8.810^3/ul (4.8-10.8) Red Blood Count 3.8410^6/ul (4.70-6.10) Hemoglobin 12.0g/dl (14.0-18.0) Hematocrit 36.9% (42.0-52.0) Mean Corpuscular Volume 96.1fl (82.0-101.0) Mean Corpuscular Hemoglobin 31.3pg (29.0-33.0) Mean Corpuscular Hemoglobin Concent 32.5g/dl (32.0-37.0) Red Cell Distribution Width 12.7% (11.5-14.5) Platelet Count 45903^3/UL (140-415) Mean Platelet Volume 10.8fl (7.4-10.4) Neutrophils % 72.1% (39.0-77.0) Lymphocytes % 16.2% (15.0-51.0) Monocytes % 8.8% (0.0-11.0) Eosinophils % 2.4% (0.0-7.0) Basophils % 0.2% (0.0-2.0) Nucleated Red Blood Cells % 0.0/100WBC (0.0-0.0) Neutrophils # 6.310^3/ul (1.6-7.5) Lymphocytes # 1.410^3/ul (0.8-2.9) Monocytes # 0.810^3/ul (0.3-0.9) Eosinophils # 0.210^3/ul (0.0-0.5) Basophils # 0.010^3/ul (0.0-0.1) Nucleated Red Blood Cells # 0.010^3/ul (0.0-0.0) HUMBLE MILNER PA-C Sep 18, 2016 07:50
[2016-09-18 08:34] VITALS: BP 114/54; RESP 18
[2016-09-18] MEDS: DOCUSATE SODIUM 100 MG CAP PO SCH (08:58)
[2016-09-18] MEDS: CELECOXIB 200 MG CAP PO SCH (08:58)
[2016-09-18] MEDS: ASPIRIN (EC) 325 MG TAB PO SCH (08:58)
[2016-09-18] MEDS: FERROUS FUMARATE (SR) TAB PO SCH (08:58)
[2016-09-18] MEDS: MULTIVITAMINS THERAPEUTIC TAB PO SCH (08:58)
--- NOTE | 2016-09-18 13:20 | CONS ---
Date/Time of Note Date/Time of Note DATE: 09/18/16 TIME: 13:18 Assessment/Plan Assessment/Plan Chief Complaint/Hosp Course #1 he is two days postop left total knee replacement. #2 he feels well and can be discharged to home today . Problems: Consultation Date/Type/Reason Admit Date/Time Sep 16, 2016 at 05:44 24 HR Interval Summary Free Text/Dictation He feels well . He is 2 days post op a L TKR Constitutional: improved, no complaints Exam/Review of Systems Vital Signs Vitals Vital Signs Date Time Temp Pulse Resp B/P Pulse Ox O2 Delivery O2 Flow Rate FiO2 09/18/16 08:34 97.8 70 18 114/54 93 09/17/16 00:35 Room Air Intake and Output 09/17/16 09/17/16 09/18/16 15:00 23:00 07:00 Intake Total 560 ml 900 ml 200 ml Output Total 600 ml 600 ml Balance 560 ml 300 ml -400 ml Exam Constitutional: alert, oriented, well developed Psych: nl mood/affect, no complaints Respiratory: clear to auscultation, normal air movement Cardiovascular: regular rate and rhythm Gastrointestinal: soft Musculoskeletal: nl extremities to inspection Results Result Diagram: 09/18/16 0425 09/17/16 0415 Results 24 hrs Laboratory Tests Test 09/18/16 04:25 White Blood Count 8.8 Red Blood Count 3.84 L Hemoglobin 12.0 L Hematocrit 36.9 L Mean Corpuscular Volume 96.1 Mean Corpuscular Hemoglobin 31.3 Mean Corpuscular Hemoglobin Concent 32.5 Red Cell Distribution Width 12.7 Platelet Count 135 L Mean Platelet Volume 10.8 H Neutrophils % 72.1 Lymphocytes % 16.2 Monocytes % 8.8 Eosinophils % 2.4 Basophils % 0.2 Nucleated Red Blood Cells % 0.0 Neutrophils # 6.3 Lymphocytes # 1.4 Monocytes # 0.8 Eosinophils # 0.2 Basophils # 0.0 Nucleated Red Blood Cells # 0.0 TESSIE ROCA MD Sep 18, 2016 13:20
== END 2016-09-18 12:10 | disposition home health service (06) | DRG 470 ==
LOC: REC 05:44 → MS1 12:51
PROC: 0SRD0JZ Replacement of Left Knee Joint with Synthetic Substitute, Open Approach (ICD-10-PCS; principal; 2016-09-16 07:30)
DX: M17.12 Unilateral primary osteoarthritis, left knee (principal); E78.5 Hyperlipidemia, unspecified; E66.9 Obesity, unspecified; Z68.30 Body mass index [BMI] 30.0-30.9, adult
CPT/HCPCS: 73560; 80053; 85025; 86850; 86900; 86901; 86920; 97116; 97162; 97530; C1776; J0131; J0330; J0690; J0735; J1100; J1170; J1885; J2250; J2274; J2405; J2710; J2795; J3010; J3370; J7120; J7121

== ENCOUNTER → 2016-10-07 | Outpatient (CLI) | payer BC ==
[~2016-10-07] MED LIST changes: -ASPI-535 PO
--- NOTE | 2016-10-07 15:35 | PN ---
Date/Time of Note Date/Time of Note DATE: 10/07/16 TIME: 15:31 Outpatient Progress Note Chief Complaint 3 week postop status post left total knee replacement HPI 66-year-old male presents today for three-week postoperative visit status post left total knee arthroplasty on 09/16/2016. Patient doing very well status post surgery. On average, he states that he gets a 1/10 pain with activity. At night however, pain can range from 5-6/10 if he has been very active throughout the day. Patient states that he only takes pain medication prior to physical therapy now. Patient is walking independently. States that functionality to the knee is significantly improved. Denies any chest pain/tightness, calf pain or surgical wound complications. Presents with . Review of Systems Const: No Fever, no chills, no Fatigue, normal appetite, no diaphoresis. Resp: No SOB, no wheezing, no chest pain. CV: No chest pain, no palpitaions, no ART. Physical Exam Blood pressure is 112/81, temperature is 98.8, pulse is 105, respiratory rate is 12, height is 6 feet, weight is 220 pounds General Appearance: well-developed, well-nourished, in no acute distress. Left knee: Surgical wound is healing well. No signs of infection. No tenderness to palpation. Patient has full range of motion of 0-130 with extension/flexion of the left knee. No pain with range of motion. 5/5 strength on resistance with flexion and extension. Slight limp with ambulation. Able to walk independently. No calf pain/negative Homans sign. Allergies Coded Allergies: No Known Drug Allergies (Verified Allergy, Unknown, 09/16/16) Assessment/Plan -Wound healing well after staple removal. No signs of infection. -Continue ASA 325 mg twice daily for DVT prophylaxis until 6 weeks status post surgery. -No signs of DVT. -Patient progressing well. -Champion 10/325 mg #45 tablets provided for patient today with instructions to take every 8 hours as needed for severe pain. Also advised to take prior to initiation of physical therapy. -Follow-up at 6 week postop appointment. X-rays will be performed at 6 weeks postoperative appointment. -Patient made aware that they may follow-up sooner, should they experience any issues or complications as we will be glad to see them. -Order for outpatient physical therapy has already been provided and patient remains in possession. Dr. Evans present during exam. Agrees with plan. Medications Home Meds Reported Medications Fish Oil/[place]-3 Fatty Acids (Fish Oil 1,000 Mg Capsule) 1 Cap Capsule, 1 CAP PO DAILY 07/02/12 Multivitamins* (Multivitamins*) 1 Tab Tablet, 1 TAB PO DAILY 07/02/12 Sawpalmtofrtxt-Zinc Picolinate (Saw [place] Capsule) 1 Cap Capsule, 1 CAP PO DAILY 07/02/12 Gluc Wiseman/Chondroitin Sulfate A (Glucosamine Chondroitin Cap) 1 Cap Capsule, 1 CAP PO DAILY 07/02/12 Atorvastatin (Lipitor) 20 Mg Tablet, 20 MG PO PM 07/02/12 HUMBLE MILNER PA-C Oct 07, 2016 15:35
== END | disposition home or self-care (01) ==
LOC: HKI 14:26
DX: Z47.1 Aftercare following joint replacement surgery (principal); Z96.652 Presence of left artificial knee joint

== ENCOUNTER → 2016-10-28 | Outpatient (CLI) | payer BC ==
--- NOTE | 2016-10-28 13:47 | PN ---
Date/Time of Note Date/Time of Note DATE: 10/28/16 TIME: 13:44 Outpatient Progress Note Chief Complaint 6 weeks postop status post left total knee replacement. HPI 66-year-old male presents today for 6 week postoperative visit status post left total knee replacement performed on 09/16/2016. Patient continues walking normally with no assisted ambulatory device. No pain with ambulation. Denies any fall since he was last seen. Patient has been doing well. Has recently finished physical therapy. Feels that he is back to normal outside of a little weakness in regards to quadriceps muscles. No complications with wound healing. Patient reports having some mild hip discomfort that he believes he could have "tweaked" the hip joint while performing physical therapy. Discomfort is manageable. Patient does state however, at times he has decreased sleep secondary to discomfort to the hip. Review of Systems Const: No Fever, no chills, no Fatigue, normal appetite, no diaphoresis. Resp: No SOB, no wheezing, no chest pain. CV: No chest pain, no palpitaions, no ART. Physical Exam Blood pressure is 144/68, temperature is 98.7, pulse is 88, respiratory rate is 12, height is 6 feet, weight is 212 pounds. General Appearance: well-developed, well-nourished, in no acute distress. Left knee: Full range of motion with active flexion/extension. Gait is normal and nonantalgic. 5/5 strength on resistance with extension and flexion. Negative Homans sign. Normal sensory examination to light touch. Surgical wound is healing well with no complications. Normal scar formation. Imaging X-ray of the left knee performed on 10/28/2016 showing all components appearing well aligned, attached and integrated to the bone. No signs of any lucency between metal and bone. Allergies Coded Allergies: No Known Drug Allergies (Verified Allergy, Unknown, 09/16/16) Assessment/Plan -Patient progressing well -Surgical wound continues to heal well. -No signs of infection or DVT on exam. -Supportive measures such as rest, ice, elevation and anti-inflammatories for the hip recommended. Stretching exercises also recommended. -X-rays showing no abnormalities in regards to prosthesis attachment to bone. -Range of motion is improved status post total knee replacement. -Amoxicillin 500 mg prescription given for antibiotic prophylaxis in regards to dental procedures. With instructions to take 4 tablets about 1 hour prior to procedure. #60 tablets dispensed. Prescription for diclofenac 1% gel also provided today. Apply 2 g topically up to 4 times a day as needed. 2 refills provided for Voltaren gel. -Antibiotic prophylaxis card provided today. -Follow-up 6 months status post surgery. If patient is doing well at that time , possible follow-up on as-needed basis from that point. Dental prophylaxis discussed in detail today. Patient given prophylaxis card with antibiotic options. Should patient have allergy to specific medication ( eg penicillin) alternative options are also provided on the card. Patient is aware that antibiotics should be taken prior to any procedures to prevent increased risk of infection to the joint. Patient is aware that this will be for the rest of their life. Patient states understanding and compliance. Medications Home Meds Reported Medications Fish Oil/[place]-3 Fatty Acids (Fish Oil 1,000 Mg Capsule) 1 Cap Capsule, 1 CAP PO DAILY 07/02/12 Multivitamins* (Multivitamins*) 1 Tab Tablet, 1 TAB PO DAILY 07/02/12 Sawpalmtofrtxt-Zinc Picolinate (Saw [place] Capsule) 1 Cap Capsule, 1 CAP PO DAILY 07/02/12 Gluc Wiseman/Chondroitin Sulfate A (Glucosamine Chondroitin Cap) 1 Cap Capsule, 1 CAP PO DAILY 07/02/12 Atorvastatin (Lipitor) 20 Mg Tablet, 20 MG PO PM 07/02/12 HUMBLE MILNER PA-C October 28, 2016 13:47
--- NOTE | 2016-10-28 15:03 | RADRPT ---
PROCEDURE: Left knee radiographs. CLINICAL INDICATION: Left knee pain. Postop. TECHNIQUE: Three views. Weight bearing. Frontal, lateral, and patellar view. COMPARISON: 09/16/2016. FINDINGS: There is no fracture or dislocation. Anterior skin caroline and surgical drains have been removed. There is a total left knee constrained arthroplasty which appears satisfactory. There is no lytic or blastic lesion. There is a small joint effusion. IMPRESSION: 1. Skin caroline and surgical drains removed. 2. Small joint effusion. 3. Otherwise unchanged postoperative appearance of the left knee. RPTAT: QQ .Raphael Ariza MD, MD Date Time Electronically viewed and signed by .Raphael Ariza MD, on 10/28/2016 15:03 .R/
== END | disposition home or self-care (01) ==
LOC: HKI 13:31
DX: Z09 Encounter for follow-up examination after completed treatment for conditions other than malignant neoplasm (principal); Z96.652 Presence of left artificial knee joint; M25.562 Pain in left knee
CPT/HCPCS: 73562; G0463